=== PATIENT | female | born 1970 | race Two or more races ===

== ENCOUNTER 2022-12-28 14:28 | Emergency (ER) | payer BC, OTHER ==
[~2022-12-28] VITALS: Ht 170.2 cm; Wt 97.8 kg
[2022-12-28] MEDS ORDERED: KETOROLAC TROMETH 60MG/2ML VIAL IM ONE (15:00)
[2022-12-28] MEDS ORDERED: HYDROcodone-ACET 10/325MG TAB PO ONE (15:00)
[2022-12-28] MEDS ORDERED: HYDR-4798 PO (15:28)
[2022-12-28] MEDS ORDERED: IBUP800T26 PO (15:28)
[2022-12-28 17:30] VITALS: BP 114/85
== END 2022-12-28 17:31 | disposition home or self-care (01) ==
LOC: ER 14:28
DX: S62.612A Displaced fracture of proximal phalanx of right middle finger, initial encounter for closed fracture (principal); S62.644A Nondisplaced fracture of proximal phalanx of right ring finger, initial encounter for closed fracture; Z88.6 Allergy status to analgesic agent; X58.XXXA Exposure to other specified factors, initial encounter; Y93.89 Activity, other specified; Y92.89 Other specified places as the place of occurrence of the external cause; Y99.8 Other external cause status
CPT/HCPCS: 29125; 73130